=== PATIENT | male | born 1970 | race Caucasian/White ===

== ENCOUNTER → 2017-02-11 | Outpatient (CLI) | payer OTHER | LOC: US 10:30 | DX: M54.2 Cervicalgia (principal); M54.5 Low back pain; M79.2 Neuralgia and neuritis, unspecified; R12 Heartburn; M77.9 Enthesopathy, unspecified | CPT/HCPCS: 72072; 72110; 76705 ==

== ENCOUNTER → 2021-10-29 | Outpatient (CLI) | payer BC ==
[~2021-10-29] MED LIST: CEFUROXIME500 MG PO; TESSALON PERLE100 MG PO
== END ==
LOC: KOH-I 11:24
DX: R05.9 Cough, unspecified (principal); M25.562 Pain in left knee; M50.30 Other cervical disc degeneration, unspecified cervical region; M51.34 Other intervertebral disc degeneration, thoracic region; M51.36 Other intervertebral disc degeneration, lumbar region; R91.8 Other nonspecific abnormal finding of lung field
CPT/HCPCS: 71046; 72040; 72070; 72100; 73562

== ENCOUNTER → 2022-07-30 | Outpatient (CLI) | payer BC | LOC: KOH-I 14:22 | DX: R05.9 Cough, unspecified (principal); M54.2 Cervicalgia; M54.6 Pain in thoracic spine; M54.50 Low back pain, unspecified; M25.562 Pain in left knee; M47.812 Spondylosis without myelopathy or radiculopathy, cervical region; M47.816 Spondylosis without myelopathy or radiculopathy, lumbar region; M47.814 Spondylosis without myelopathy or radiculopathy, thoracic region | CPT/HCPCS: 71046; 72040; 72070; 72100; 73562 ==